=== PATIENT | male | born 1935 | race Caucasian/White ===

== ENCOUNTER → 2017-01-25 | Outpatient (CLI) | payer MEDICARE ==
--- NOTE | 2017-01-25 10:11 | PCVCIMAG ---
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, #28 Mary Kate annuloplasty ring repair 2D Dimensions LVEF(%): 47.33 (>50%) IVSd: 10.24 (7-11mm)LVOT Diam: 23.38 (18-24mm) LVDd: 47.03 mm PWd: 10.11 (7-11mm)Ascending Ao: 35.54 (22-36mm) LVDs: 35.88 (25-40mm) Left Atrium: 52.79 (27-40mm) Aortic Root: 32.10 mm LV Single Plane 4CH: 51.53 % LV Single Plane 2CH: 50.38 %Keane's LVEF: 50.96 % Biplane EF: 51.2 % Volumes Left Atrial Volume (Systole) Single Plane 4CH: 111.02 mLSingle Plane 2CH: 85.52 mL LA ESV Index: 45.00 mL/m2 Aortic Valve AoV Peak Dyllan.: 2.35 m/s AO Peak Gr.: 22.07 mmHgLVOT Max P.79 mmHg AO Mean Gr.: 12.04 mmHgLVOT Mean P.60 mmHg AO V2 Mean: 1.65 m/sLVOT Max V: 1.09 m/s AO V2 VTI: 45.08 cmLVOT Mean V: 0.77 m/s JEAN PIERRE (VTI): 1.97 [id number] VTI: 20.67 cm JEAN PIERRE Vmax: 2.00 cm2 SV (LVOT): 88.69 mL Mitral Valve MV Peak Gr.: 10.58 mmHg MV Mean Gr.: 4.12 mmHg MV Max Dyllan.: 1.63 m/s MV Mean Dyllan.: 0.91 m/s MV VTI: 307.76 mm MVA VTI: 288.16 mm2 MV PHT: 94.82 ms MVA (PHT): 2.32 cm2 IVRT: 65.74 ms Pulmonary Valve PV Peak Dyllan.: 0.93 m/sPV Peak Gr.: 3.50 mmHg Pulmonary Vein P Vein S: 0.37 m/sP Vein A: 0.29 m/s P Vein D: 0.76 m/sP Vein A Dur.: 110.7 msec P Vein S/D Ratio: 0.49 Tricuspid Valve TR Peak Dyllan.: 3.22 m/s TR Peak Gr.: 41.63 mmHg Left Ventricle The left ventricle is normal size. There is normal LV segmental wall motion. There is normal left ventricular wall thickness. Left ventricular systolic function is normal. The left ventricular ejection fraction is within the normal range. LVEF is 55%. This study is not technically sufficient to allow evaluation of the LV diastolic function. Right Ventricle The right ventricle is normal size. The right ventricular systolic function is normal. Atria Left atrium is severely dilated. Right atrium is severely dilated. Aortic Valve Normally functioning #23 Huang pericardial valve in the aortic position. Normally functioning #23 Huang pericardial valve in the aortic position. No aortic regurgitation is present. There is no aortic valvular stenosis. Calculated aortic valve area is 2 cm2 with maximum pressure gradient of 22 mmHg and mean pressure gradient of 12 mmHg. Mitral Valve #28 Mary Kate annuloplasty ring with normal mitral valve leaflet structure Trace mitral regurgitation. No evidence of mitral valve stenosis. Calculated mitral valve area is 2.3 cm2 with maximum pressure gradient of 10.6 mmHg and mean pressure gradient of 4.1 mmHg. Tricuspid Valve The tricuspid valve is normal in structure. Moderate tricuspid regurgitation with PAP of 50 mmHg. Pulmonic Valve The pulmonary valve is normal in structure. Mild to moderate pulmonic regurgitation. Great Vessels The aortic root is normal in size. IVC is normal in size and collapses with >50% inspiration Pericardium There is no pericardial effusion. <Conclusion> Left ventricular systolic function is normal. There is normal LV segmental wall motion. LVEF 55%. Both atria are severely dilated. Normally functioning #23 Huang pericardial valve in the aortic position. No aortic valvular stenosis or insufficiency. Calculated aortic valve area is 2 cm2 with maximum pressure gradient of 22 mmHg and mean pressure gradient of 12 mmHg. #28 Mary Kate annuloplasty ring with normal mitral valve leaflet structure. Trace mitral regurgitation. Pulmonary artery pressure of 50mmHg There is no pericardial effusion.
== END | disposition home or self-care (01) ==
LOC: PCVCIMAG 09:12
PROVIDERS: ATTEND Internal Medicine
DX: I34.0 Nonrheumatic mitral (valve) insufficiency (principal); I07.1 Rheumatic tricuspid insufficiency; I37.1 Nonrheumatic pulmonary valve insufficiency; I48.2 Chronic atrial fibrillation; I11.0 Hypertensive heart disease with heart failure; I50.32 Chronic diastolic (congestive) heart failure; E78.5 Hyperlipidemia, unspecified; G47.33 Obstructive sleep apnea (adult) (pediatric); J43.1 Panlobular emphysema; Z79.899 Other long term (current) drug therapy; Z95.3 Presence of xenogenic heart valve; Z98.890 Other specified postprocedural states; Z96.652 Presence of left artificial knee joint; Z87.891 Personal history of nicotine dependence
CPT/HCPCS: 93005; 93306; G0463

== ENCOUNTER → 2017-07-26 | Outpatient (CLI) | payer MEDICARE | END | disposition home or self-care (01) | LOC: PCVCCLINIC 13:24 | DX: I11.0 Hypertensive heart disease with heart failure (principal); I50.32 Chronic diastolic (congestive) heart failure; I48.2 Chronic atrial fibrillation; E78.5 Hyperlipidemia, unspecified; G47.33 Obstructive sleep apnea (adult) (pediatric); J43.1 Panlobular emphysema; Z98.890 Other specified postprocedural states; Z95.3 Presence of xenogenic heart valve; Z87.891 Personal history of nicotine dependence; Z79.899 Other long term (current) drug therapy | CPT/HCPCS: 80061; 93005; G0463 ==

== ENCOUNTER → 2018-03-01 | Outpatient (CLI) | payer MEDICARE | END | disposition home or self-care (01) | LOC: PCVCCLINIC 12:47 | PROVIDERS: ATTEND Internal Medicine | DX: I48.2 Chronic atrial fibrillation (principal); I11.0 Hypertensive heart disease with heart failure; I50.32 Chronic diastolic (congestive) heart failure; I48.92 Unspecified atrial flutter; E78.5 Hyperlipidemia, unspecified; G47.33 Obstructive sleep apnea (adult) (pediatric); J43.1 Panlobular emphysema; Z95.3 Presence of xenogenic heart valve; Z98.890 Other specified postprocedural states; Z87.891 Personal history of nicotine dependence | CPT/HCPCS: 80061; 93005; G0463 ==

== ENCOUNTER → 2018-10-03 | Outpatient (CLI) | payer MEDICARE | END | disposition home or self-care (01) | LOC: PCVCCLINIC 13:30 | PROVIDERS: ATTEND Internal Medicine | DX: I48.2 Chronic atrial fibrillation (principal); I11.0 Hypertensive heart disease with heart failure; I50.32 Chronic diastolic (congestive) heart failure; E78.5 Hyperlipidemia, unspecified; G47.33 Obstructive sleep apnea (adult) (pediatric); J43.1 Panlobular emphysema; R06.09 Other forms of dyspnea; Z98.890 Other specified postprocedural states; Z95.3 Presence of xenogenic heart valve | CPT/HCPCS: 36415; 80061; 93005; G0463 ==

== ENCOUNTER → 2019-04-04 | Outpatient (CLI) | payer MEDICARE ==
--- NOTE | 2019-04-04 15:37 | PCVCIMAG ---
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 valve, #28 Mary Kate annuloplasty ring CryoMaze procedure 2D Dimensions IVSd: 8.88 (7-11mm)LVOT Diam: 22.87 (18-24mm) LVDd: 33.50 mm PWd: 10.70 (7-11mm)Ascending Ao: 32.39 (22-36mm) LVDs: 16.84 (25-40mm) Left Atrium: 50.94 (27-40mm) Aortic Root: 24.02 mm LV Single Plane 4CH: 60.85 % LV Single Plane 2CH: 71.05 % Biplane EF: 66.0 % Volumes Left Atrial Volume (Systole) Single Plane 4CH: 99.68 mLSingle Plane 2CH: 87.94 mL Biplane LA Volume: 97.00 mLLA ESV Index: 43.00 mL/m2 Aortic Valve AoV Peak Dyllan.: 2.11 m/s AO Peak Gr.: 17.71 mmHgLVOT Max P.01 mmHg AO Mean Gr.: 10.83 mmHgLVOT Mean P.37 mmHg AO V2 Mean: 1.59 m/sLVOT Max V: 0.72 m/s AO V2 VTI: 45.96 cmLVOT Mean V: 0.57 m/s JEAN PIERRE (VTI): 1.63 [id number] VTI: 18.21 cm JEAN PIERRE Vmax: 1.39 cm2 SV (LVOT): 74.81 mL Mitral Valve MV E Max Dyllan.: 1.49 m/s MV VTI: 214.77 mm MVA VTI: 348.31 mm2 MV PHT: 64.58 ms MVA (PHT): 3.41 cm2 IVRT: 58.82 ms TDI E/Lateral E': 16.56E/Medial E': 18.63 Medial E' Dyllan.: 0.08 m/s Lateral E' Dyllan.: 0.09 m/s Pulmonary Valve PV Peak Dyllan.: 0.89 m/sPV Peak Gr.: 3.15 mmHg Tricuspid Valve TR Peak Dyllan.: 3.63 m/s TR Peak Gr.: 52.83 mmHg TV Vmax: 0.90 m/sPA Pressure: 60.00 mmHg Left Ventricle The left ventricle is normal size. There is normal LV segmental wall motion. There is normal left ventricular wall thickness. Left ventricular systolic function is normal. The left ventricular ejection fraction is within the normal range. LVEF is 65-70%. Findings suggest the left atrial pressure is elevated. Right Ventricle The right ventricle is normal size. The right ventricular systolic function is normal. Atria Left atrium is severely dilated. Right atrium is severely dilated. Aortic Valve A normally functioning #23 Huang bioprosthetic valve is seen in the aortic position Bioprosthetic aortic valve is present. No aortic regurgitation is present. There is no aortic valvular stenosis. Mitral Valve A #28 annuloplasty ring There is no mitral valve regurgitation noted. No evidence of mitral valve stenosis. Tricuspid Valve The tricuspid valve is normal in structure. Mild to moderate tricuspid regurgitation with a PA pressure of 60 mmHg. Pulmonic Valve The pulmonary valve is normal in structure. There is no pulmonic valvular regurgitation. Great Vessels The aortic root is normal in size. IVC is dilated and collapses <50% with inspiration. Pericardium There is no pericardial effusion. <Conclusion> Left ventricular systolic function is normal. There is normal LV segmental wall motion. LVEF is 65-70%. Both atria are severely dilated. A normally functioning #23 Huang bioprosthetic valve is seen in the aortic position No aortic regurgitation is present. A #28 annuloplasty ring. No mitral valve regurgitation. Mild to moderate tricuspid regurgitation with a pulmonary artery pressure of 60 mmHg. There is no pericardial effusion.
== END | disposition home or self-care (01) ==
LOC: PCVCIMAG 14:01
PROVIDERS: ATTEND Internal Medicine
DX: I36.1 Nonrheumatic tricuspid (valve) insufficiency (principal); I48.21 Permanent atrial fibrillation; E78.5 Hyperlipidemia, unspecified; J43.1 Panlobular emphysema; G47.33 Obstructive sleep apnea (adult) (pediatric); I11.0 Hypertensive heart disease with heart failure; I50.32 Chronic diastolic (congestive) heart failure; Z95.3 Presence of xenogenic heart valve; Z98.890 Other specified postprocedural states; Z87.891 Personal history of nicotine dependence; Z79.899 Other long term (current) drug therapy
CPT/HCPCS: 36415; 80061; 93005; 93306; G0463